=== PATIENT | male | born 1955 | race Caucasian/White ===

== ENCOUNTER 2023-11-21 13:51 | Emergency (ER) | payer MEDICARE, BC ==
[2023-11-21] MEDS: Ketorolac 30 MG/ML SDV IVPUSH STA (17:20)
== END 2023-11-21 17:55 | disposition home or self-care (01) ==
LOC: MW.ED 13:51
DX: M54.6 Pain in thoracic spine (principal); E03.9 Hypothyroidism, unspecified; Z88.0 Allergy status to penicillin; Z88.8 Allergy status to other drugs, medicaments and biological substances; Z75.8 Other problems related to medical facilities and other health care; Z79.899 Other long term (current) drug therapy; W01.0XXA Fall on same level from slipping, tripping and stumbling without subsequent striking against object, initial encounter
CPT/HCPCS: 70450; 72125; 72128; 72131; 96374; 96375; 96376; 99283; J1885; J3360; 99284